=== PATIENT | female | born 1930 | race Caucasian/White ===

== ENCOUNTER 2019-02-16 12:11 | Emergency (ER) | payer MEDICARE, BC ==
[2019-02-16 12:58] VITALS: BP 113/49
--- NOTE | 2019-02-16 13:16 | UC ---
Respiratory Complaint HPI - HPI Summary HPI Summary: 88-year-old woman comes in with a chief complaint of shortness of breath. 2 weeks ago the patient was admitted for congestive heart failure. Prior to that the patient had been admitted for pneumonia she went home and then was in congestive heart failure was admitted for congestive heart failure sent home on Lasix 20 mg once a day. She has a visiting nurse to told her she needs to get evaluated today because she was hearing noises on lung exam. Patient reports she is more short of breath starting yesterday. Patient is on oxygen at home in the evenings and she denies any shortness of breath in the evening. Occasionally sees the oxygen during the day which helps. No recent fevers or chills no complaint of chest pain. Patient does have a minimal amount of edema. - History of Current Complaint Chief Complaint: UCRespiratory Stated Complaint: RESP CONCERN Time Seen by Provider: 02/16/19 12:55 Pain Intensity: 0 - Allergies/Home Medications Allergies/Adverse Reactions: Allergies Allergy/AdvReac Type Severity Reaction Status Date / Time No Known Allergies Allergy Verified 02/16/19 12:50 PMH/Surg Hx/FS Hx/Imm Hx Previously Healthy: Yes Cardiovascular History: Congestive Heart Failure Respiratory History: Pneumonia, Other - SEE HPI GI/ History: Gastroesophageal Reflux - Surgical History Surgery Procedure, Year, and Place: hysterectomy. tonsillectomy. pancreatic repair. choly. appy. eye surgery - Family History Known Family History: Positive: Non-Contributory - Social History Alcohol Use: None Substance Use Type: None Smoking Status (MU): Never Smoked Tobacco Review of Systems All Other Systems Reviewed And Are Negative: Yes Constitutional: Positive: Negative Skin: Positive: Negative, Rash ENT: Positive: Negative Respiratory: Positive: Shortness Of Breath, Other - SEE HPI Cardiovascular: Positive: Negative Gastrointestinal: Positive: Negative Motor: Positive: Negative Neurovascular: Positive: Negative Musculoskeletal: Positive: Edema Neurological: Positive: Negative Psychological: Positive: Negative Is Patient Immunocompromised?: No Physical Exam Triage Information Reviewed: Yes Appearance: Well-Appearing, No Pain Distress, Well-Nourished Vital Signs: Initial Vital Signs Temp 98.8 F 02/16/19 12:51 Pulse 68 02/16/19 12:51 Resp 17 02/16/19 12:51 BP 113/49 02/16/19 12:51 Pulse Ox 98 02/16/19 12:51 Vital Signs Reviewed: Yes Eye Exam: Normal Eyes: Positive: Conjunctiva Clear ENT: Positive: Pharynx normal Neck: Positive: Supple Respiratory: Positive: No respiratory distress, Rhonchi - B/L Cardiovascular: Positive: RRR Musculoskeletal: Positive: Strength Intact, Edema @ - [facility]DE[facility] B/L Neurological: Positive: Alert Psychological: Positive: Age Appropriate Behavior Skin Exam: Normal Respiratory Course/Dx - Course Course Of Treatment: Patient Name: ABELARDO FARFAN Medical Record#: [id number] Ordering Physician: Chad Rodarte MD Acct.#: [id number] : 1930 Age: 88 Sex: F Location: [facility] Exam Date: 02/16/19 1308 ADM Status: REG ER Order Information: CHEST PA LAT 2 VWS Accession Number: [id number] CPT: 53285 INDICATION: Shortness of breath, cough. History of pneumonia 3 weeks ago. COPD. COMPARISON: No relevant prior exams available on the [facility] [place] for comparison. TECHNIQUE: Dual energy PA and routine lateral views of the chest were obtained. REPORT: Elevated lung volumes and mild prominence of the interstitial markings. No focal pulmonary lesion, compelling alveolar consolidation, pleural effusion, pneumothorax. The heart, pulmonary vasculature, and mediastinal contours are unremarkable. Suggestion of a healed RIGHT humeral neck fracture. IMPRESSION: #. Stigmata of obstructive lung disease. No acute pulmonary or cardiac process evident. <Electronically signed by Hilario Burroughs MD in OV> 02/16/19 1329 I discussed the x-ray results with the patient and her daughter. No pneumonia and no CHF appreciated on the chest x-ray. There is findings of obstructive lung disease. At this time the patient's on Lasix 20 mg once a day. She only has a trace of pedal edema. Clinically she does not appear to be in congestive heart failure. No fever no signs of infection at this time. Because of the chest x-ray findings the plan is to treat with an albuterol inhaler and follow- up with her primary care physician. Discussed with the patient and her daughter that if the patient gets worse she needs to go to the emergency department for further evaluation. - Differential Dx/Diagnosis Provider Diagnosis: Shortness of breath Discharge - Sign-Out/Discharge Documenting (check all that apply): Patient Departure All imaging exams completed and their final reports reviewed: Yes - Discharge Plan Condition: Stable Disposition: HOME Prescriptions: Albuterol HFA INHALER* [Ventolin HFA Inhaler*] 2 puff INH Q4H PRN #1 mdi PRN Reason: Wheezing Patient Education Materials: Shortness of Breath (ED) Referrals: Macie Argueta MD [Primary Care Provider] - Additional Instructions: FOLLOW UP WITH YOUR DOCTOR. GO TO THE EMERGENCY DEPARTMENT IF WORSE OR ANY QUESTIONS OR CONCERNS. - Billing Disposition and Condition Condition: STABLE Disposition: Home
== END 2019-02-16 14:12 | disposition home or self-care (01) ==
LOC: UCCORT 12:11
DX: R06.02 Shortness of breath (principal); I50.9 Heart failure, unspecified; Z99.81 Dependence on supplemental oxygen
CPT/HCPCS: 71046; 99202; G0463